=== PATIENT | female | born 1980 | race Caucasian/White ===

== ENCOUNTER 2020-01-15 21:44 | Emergency (ER) | payer OTHER ==
[~2020-01-15] VITALS: Ht 172.7 cm; Wt 90.3 kg
[~2020-01-15 21:44] MED LIST: IRON325 M1 PO; KEFLEX500 MG PO
[2020-01-15] MEDS ORDERED: KOSHER PRENATA1 EACH PO (22:02)
--- OUTSIDE RECORDS SUMMARY | 2020-01-15 23:12 | XMS ---
PreManage Notification: ONIEL SPANN Security Health Concierge Events No recent Security Events currently on file CRITERIA MET - [facility] - 2 Visits in 30 Days CARE PROVIDERS Raad Ware Community Health Worker 11/22/2018-Marisol Reynoso - PHONE: [phone] ROBB MORENO Physician Operating Systems Programmer Current PHONE: [phone] Terry has no Care Guidelines for this patient. Care History Medical/Surgical 01/13/2020 [facility] - PATIENT HAS AN APT WITH ALTHEA FRANK 01/22/2020. E.D. VISIT COUNT (12 MO.) [facility] [address] TOTAL 10 NOTE: Visits indicate total known visits. ED/UCC VISIT TRACKING (12 MO.) 01/15/2020 21:44 [facility] [place] TYPE: Emergency COMPLAINT: - CRAMPING,BACK PAIN 8 WEEKS PREG 01/04/2020 17:51 [facility] [place] TYPE: Emergency COMPLAINT: - CRAMPING DIAGNOSES: - Unspecified infection of urinary tract in , first trimester - Unspecified infection of urinary tract in , first trimester - Less than 8 weeks gestation of 10/24/2019 13:48 [employer] [facility] [place] TYPE: Emergency DIAGNOSES: - CHEST PAIN/HEART PALPITATIONS 09/01/2019 11:45 [facility] [place] TYPE: Emergency DIAGNOSES: - Unspecified atrial fibrillation - follow up 08/31/2019 15:18 [employer] [place] TYPE: Emergency DIAGNOSES: - Unspecified atrial fibrillation - +SCREENING; HEART PALPITATIONS, HYPERTENSION, SOB 07/10/2019 20:45 [facility] DIAGNOSES: - Complete or unspecified spontaneous without complication - POSS MISCARRIAGE 07/10/2019 16:00 [facility] [place] TYPE: Emergency DIAGNOSES: - Maternal care for abnormalities of the heart rate or rhythm, unspecified trimester, not applicable or unspecified - Hemorrhage in early , unspecified - VAGINAL BLEEDING AND LOWER BACK PAIN 06/26/2019 17:56 [employer] [place] TYPE: Emergency DIAGNOSES: - EARLY ,HEAVY ABD CRAMPING - Pelvic and perineal pain - Encounter for supervision of normal , unspecified, first trimester - Unspecified ovarian cyst, left side 06/08/2019 20:37 [employer] [place] TYPE: Emergency DIAGNOSES: - Pain in left knee - knee inj 05/27/2019 22:25 [facility] [place] TYPE: Emergency DIAGNOSES: - Episodic tension-type headache, not intractable - Anemia, unspecified - LOW HEMOGLOBIN LEVEL INPATIENT VISIT TRACKING (12 MO.) No inpatient visits to display in this time frame [id number]
[2020-01-16] MEDS ORDERED: FLAGYL500 MG PO (00:06)
== END 2020-01-16 00:33 | disposition home or self-care (01) ==
LOC: ED 21:44
DX: O23.591 Infection of other part of genital tract in pregnancy, first trimester (principal); B96.89 Other specified bacterial agents as the cause of diseases classified elsewhere; O99.891 Other specified diseases and conditions complicating pregnancy; I48.91 Unspecified atrial fibrillation; Z79.899 Other long term (current) drug therapy; Z3A.08 8 weeks gestation of pregnancy
CPT/HCPCS: 81001; 85379; 87210; 87491; 87591; 99283

== ENCOUNTER 2020-01-23 20:09 | Emergency (ER) | payer OTHER ==
[~2020-01-23] VITALS: Ht 172.7 cm; Wt 91.0 kg
[~2020-01-23 20:09] MED LIST changes: +FLAGYL500 MG PO; +KOSHER PRENATA1 EACH PO
--- OUTSIDE RECORDS SUMMARY | 2020-01-23 20:12 | XMS ---
PreManage Notification: ONIEL SPANN Security Bark Peeler Events No recent Security Events currently on file CRITERIA MET - 6 ED Visits in 6 Months - [facility] - 2 Visits in 30 Days CARE PROVIDERS Raad Ware Community Health Worker 11/22/2018-Marisol Reynoso - PHONE: [phone] ROBB MORENO Physician Long Term Care Phlebotomist Current PHONE: [phone] Terry has no Care Guidelines for this patient. Care History Medical/Surgical 01/13/2020 [facility] - PATIENT HAS AN APT WITH ALTHEA FRANK 01/22/2020. E.D. VISIT COUNT (12 MO.) [address] [place] [address] 3 [facility] TOTAL 11 NOTE: Visits indicate total known visits. ED/UCC VISIT TRACKING (12 MO.) 01/23/2020 20:10 [facility] [place] TYPE: Emergency COMPLAINT: - VAGINAL BLEEDING/ 9 WEEKS PREG 01/15/2020 21:44 [facility] [place] TYPE: Emergency COMPLAINT: - CRAMPING,BACK PAIN 8 WEEKS PREG DIAGNOSES: - Pain in thoracic spine - 8 weeks gestation of - Unspecified atrial fibrillation - Infection of other part of genital tract in , first trimester - Other specified bacterial agents as the cause of diseases classified elsewhere - Other specified diseases and conditions complicating - Other alf (current) drug therapy 01/04/2020 17:51 [facility] [place] TYPE: Emergency COMPLAINT: - CRAMPING DIAGNOSES: - Unspecified infection of urinary tract in , first trimester - Unspecified infection of urinary tract in , first trimester - Less than 8 weeks gestation of 10/24/2019 13:48 [employer] [place] TYPE: Emergency COMPLAINT: - CHEST PAIN/HEART PALPITATIONS DIAGNOSES: - CHEST PAIN/HEART PALPITATIONS 09/01/2019 11:45 [employer] [place] TYPE: Emergency DIAGNOSES: - Unspecified atrial fibrillation - follow up 08/31/2019 15:18 [facility] OR TYPE: Emergency DIAGNOSES: - Unspecified atrial fibrillation - +SCREENING; HEART PALPITATIONS, HYPERTENSION, SOB 07/10/2019 20:45 [facility] [place] TYPE: Emergency DIAGNOSES: - Complete or unspecified spontaneous without complication - POSS MISCARRIAGE 07/10/2019 16:00 [facility] [place] TYPE: Emergency DIAGNOSES: - Maternal care for abnormalities of the heart rate or rhythm, unspecified trimester, not applicable or unspecified - Hemorrhage in early , unspecified - VAGINAL BLEEDING AND LOWER BACK PAIN 06/26/2019 17:56 [facility] [place] TYPE: Emergency DIAGNOSES: - EARLY ,HEAVY ABD CRAMPING - Pelvic and perineal pain - Encounter for supervision of normal , unspecified, first trimester - Unspecified ovarian cyst, left side 06/08/2019 20:37 [facility] [place] TYPE: Emergency DIAGNOSES: - Pain in left knee - knee inj 05/27/2019 22:25 [facility] [place] TYPE: Emergency DIAGNOSES: - Episodic tension-type headache, not intractable - Anemia, unspecified - LOW HEMOGLOBIN LEVEL INPATIENT VISIT TRACKING (12 MO.) No inpatient visits to display in this time frame [id number]
== END 2020-01-23 20:44 | disposition home or self-care (01) ==
LOC: ED 20:09
DX: O20.0 Threatened abortion (principal); O99.411 Diseases of the circulatory system complicating pregnancy, first trimester; I48.91 Unspecified atrial fibrillation; Z79.899 Other long term (current) drug therapy
CPT/HCPCS: 99283

== ENCOUNTER 2020-01-24 23:33 | Emergency (ER) | payer OTHER ==
[~2020-01-24] VITALS: Ht 172.7 cm; Wt 90.7 kg
--- OUTSIDE RECORDS SUMMARY | 2020-01-24 23:36 | XMS ---
PreManage Notification: ONIEL SPANN Security Package Line Relief Operator Events No recent Security Events currently on file CRITERIA MET - 6 ED Visits in 6 Months - [facility] - 2 Visits in 30 Days CARE PROVIDERS Raad Ware Community Health Worker 11/22/2018-Marisol Reynoso - PHONE: [phone] ROBB MORENO Physician Fitting Room Associate Current PHONE: [phone] Terry has no Care Guidelines for this patient. Care History Medical/Surgical 01/13/2020 [facility] - PATIENT HAS AN APT WITH ALTHEA FRANK 01/22/2020. E.D. VISIT COUNT (12 MO.) [address] [place] [address] 4 [facility] Miguel Barrera Gerber TOTAL 12 NOTE: Visits indicate total known visits. ED/UCC VISIT TRACKING (12 MO.) 01/24/2020 23:33 [facility] [place] TYPE: Emergency COMPLAINT: - 9WKS OB, VAGINAL BLEEDING 01/23/2020 20:10 [facility] [place] TYPE: Emergency COMPLAINT: - VAGINAL BLEEDING/ 9 WEEKS PREG 01/15/2020 21:44 [facility] [place] TYPE: Emergency COMPLAINT: - CRAMPING,BACK PAIN 8 WEEKS PREG DIAGNOSES: - Pain in thoracic spine - 8 weeks gestation of - Unspecified atrial fibrillation - Infection of other part of genital tract in , first trimester - Other specified bacterial agents as the cause of diseases classified elsewhere - Other specified diseases and conditions complicating - Other manager terminal (current) drug therapy 01/04/2020 17:51 [facility] [place] TYPE: Emergency COMPLAINT: - CRAMPING DIAGNOSES: - Unspecified infection of urinary tract in , first trimester - Unspecified infection of urinary tract in , first trimester - Less than 8 weeks gestation of 10/24/2019 13:48 [facility] [place] TYPE: Emergency COMPLAINT: - CHEST PAIN/HEART PALPITATIONS DIAGNOSES: - CHEST PAIN/HEART PALPITATIONS 09/01/2019 11:45 [facility] [place] TYPE: Emergency DIAGNOSES: - Unspecified atrial fibrillation - follow up 08/31/2019 15:18 [facility] [place] TYPE: Emergency DIAGNOSES: - Unspecified atrial fibrillation - +SCREENING; HEART PALPITATIONS, HYPERTENSION, SOB 07/10/2019 20:45 [facility] [place] TYPE: Emergency DIAGNOSES: - Complete or unspecified spontaneous without complication - POSS MISCARRIAGE 07/10/2019 16:00 [facility] [place] TYPE: Emergency DIAGNOSES: - Maternal care for abnormalities of the heart rate or rhythm, unspecified trimester, not applicable or unspecified - Hemorrhage in early , unspecified - VAGINAL BLEEDING AND LOWER BACK PAIN 06/26/2019 17:56 [facility] [place] TYPE: Emergency DIAGNOSES: - EARLY ,HEAVY ABD CRAMPING - Pelvic and perineal pain - Encounter for supervision of normal , unspecified, first trimester - Unspecified ovarian cyst, left side 06/08/2019 20:37 [facility] [employer] [place] TYPE: Emergency DIAGNOSES: - Pain in left knee - knee inj 05/27/2019 22:25 [facility]: Emergency DIAGNOSES: - Episodic tension-type headache, not intractable - Anemia, unspecified - LOW HEMOGLOBIN LEVEL INPATIENT VISIT TRACKING (12 MO.) No inpatient visits to display in this time frame [id number]
--- NOTE | 2020-01-25 02:45 | NUR ---
ED Doctor asked me to visit with PT because she was emotional after learning that she had a demise. I visit with PT and listened to her and offered her support. She is concerned how her children will respond to the news. She welcomed me praying with her. I gave her a resourse to help process her emotions and loss and encouraged her to find support in her community. This was at approx. 0200.
[2020-01-26] MEDS ORDERED: NORCO 5-325 TA1 EACH PO (13:06)
== END 2020-01-25 02:30 | disposition home or self-care (01) ==
LOC: ED 23:33
DX: O03.9 Complete or unspecified spontaneous abortion without complication (principal); I48.91 Unspecified atrial fibrillation; Z79.899 Other long term (current) drug therapy
CPT/HCPCS: 76801; 84702; 85025; 99284-25

== ENCOUNTER 2020-01-26 09:54 | Emergency (ER) | payer OTHER ==
[~2020-01-26] VITALS: Ht 172.7 cm; Wt 90.7 kg
--- OUTSIDE RECORDS SUMMARY | 2020-01-26 09:58 | XMS ---
PreManage Notification: ONIEL SPANN Security Hospitality Manager Events No recent Security Events currently on file CRITERIA MET - 6 ED Visits in 6 Months - [facility] - 2 Visits in 30 Days CARE PROVIDERS Raad Ware Community Health Worker 11/22/2018-Marisol Reynoso - PHONE: [phone] ROBB MORENO Physician Job Coach Current PHONE: [phone] Terry has no Care Guidelines for this patient. Care History Medical/Surgical 01/13/2020 [facility] - PATIENT HAS AN APT WITH ALTHEA FRANK 01/22/2020. E.D. VISIT COUNT (12 MO.) [address] [place] [address] [facility] TOTAL 13 NOTE: Visits indicate total known visits. ED/UCC VISIT TRACKING (12 MO.) 01/26/2020 09:55 [facility] [place] TYPE: Emergency COMPLAINT: - LABOR TYPE PAIN 01/24/2020 23:33 [facility] [place] TYPE: Emergency [...] specified diseases and conditions complicating - Other exterminator helper termite (current) drug therapy 01/04/2020 17:51 [facility] [place] TYPE: Emergency COMPLAINT: - CRAMPING DIAGNOSES: - Unspecified infection of urinary tract in , first trimester - Unspecified infection of urinary tract in , first trimester - Less than 8 weeks gestation of 10/24/2019 13:48 [facility] [place] TYPE: Emergency COMPLAINT: - CHEST PAIN/HEART PALPITATIONS DIAGNOSES: - CHEST PAIN/HEART PALPITATIONS 09/01/2019 11:45 [facility]: Emergency DIAGNOSES: - Unspecified atrial fibrillation - follow up 08/31/2019 15:18 [facility] [place] TYPE: Emergency DIAGNOSES: - Unspecified atrial fibrillation - +SCREENING; HEART PALPITATIONS, HYPERTENSION, SOB 07/10/2019 20:45 [facility] [place] TYPE: Emergency DIAGNOSES: - Complete or unspecified spontaneous without complication - POSS MISCARRIAGE 07/10/2019 16:00 [facility] [place] TYPE: Emergency DIAGNOSES: - Maternal care for abnormalities of the heart rate or rhythm, unspecified trimester, not applicable or unspecified - Hemorrhage in early , unspecified - VAGINAL BLEEDING AND LOWER BACK PAIN 06/26/2019 17:56 [facility] [place] TYPE: Emergency DIAGNOSES: - EARLY ,HEAVY ABD CRAMPING - Pelvic and perineal pain - Encounter for supervision of normal , unspecified, first trimester - Unspecified ovarian cyst, left side 06/08/2019 20:37 [facility] [place] TYPE: Emergency DIAGNOSES: - Pain in left knee - knee inj 05/27/2019 22:25 [place] TYPE: Emergency DIAGNOSES: - Episodic tension-type headache, not intractable - Anemia, unspecified - LOW HEMOGLOBIN LEVEL INPATIENT VISIT TRACKING (12 MO.) No inpatient visits to display in this time frame [email or web address]
[2020-01-26] MEDS ORDERED: NORCO 5-325 TA1 EACH PO (13:06)
== END 2020-01-26 13:45 | disposition home or self-care (01) ==
LOC: ED 09:54
DX: O03.9 Complete or unspecified spontaneous abortion without complication (principal); I48.91 Unspecified atrial fibrillation; Z79.899 Other long term (current) drug therapy
CPT/HCPCS: 76801; 76817; 80048; 81001; 84702; 85025; 86900; 86901; 99284-25; J2270; J7030

== ENCOUNTER 2020-03-16 10:31 | Emergency (ER) | payer OTHER ==
[~2020-03-16] VITALS: Ht 172.7 cm; Wt 90.7 kg
[~2020-03-16 10:31] MED LIST changes: +NORCO 5-325 TA1 EACH PO
--- OUTSIDE RECORDS SUMMARY | 2020-03-16 10:34 | XMS ---
PreManage Notification: ONIEL SPANN Security Passenger Service Agent Events No recent Security Events currently on file CRITERIA MET - 6 ED Visits in 6 Months CARE PROVIDERS Raad Ware Community Health Worker 11/22/2018-Marisol Reynoso - PHONE: [phone] ROBB MORENO Physician Paper Latcher Current PHONE: [phone] Terry has no Care Guidelines for this patient. Care History Medical/Surgical 01/13/2020 [facility] - PATIENT HAS AN APT WITH ALTHEA FRANK 01/22/2020. E.D. VISIT COUNT (12 MO.) [address] [place] [address] TOTAL 14 NOTE: Visits indicate total known visits. ED/UCC VISIT TRACKING (12 MO.) 03/16/2020 10:31 [facility] [place] TYPE: Emergency COMPLAINT: - WEAKNESS, HEADACHE 01/26/2020 09:55 [facility] [place] TYPE: Emergency COMPLAINT: - LABOR TYPE PAIN DIAGNOSES: - Complete or unspecified spontaneous without complication - Unspecified atrial fibrillation - Other halfway (current) drug therapy 01/24/2020 23:33 [facility] [place] TYPE: Emergency COMPLAINT: - 9WKS OB, VAGINAL BLEEDING DIAGNOSES: - Unspecified atrial fibrillation - Other rn long term care (current) drug therapy - Complete or unspecified spontaneous without complication - Hemorrhage in early , unspecified 01/23/2020 20:10 [facility] [place] TYPE: Emergency COMPLAINT: - VAGINAL BLEEDING/ 9 WEEKS PREG DIAGNOSES: - Unspecified atrial fibrillation - Other rn long term care (current) drug therapy - Diseases of the circulatory system complicating , first trimester - Threatened 01/15/2020 21:44 [facility] [place] TYPE: Emergency COMPLAINT: - CRAMPING,BACK PAIN 8 WEEKS PREG DIAGNOSES: - Pain in thoracic spine - 8 weeks gestation of - Unspecified atrial fibrillation - Infection of other part of genital tract in , first trimester - Other specified bacterial agents as the cause of diseases classified elsewhere - Other specified diseases and conditions complicating - Other specified diseases and conditions complicating - Other halfway (current) drug therapy 01/04/2020 17:51 [facility] [place] TYPE: Emergency COMPLAINT: - CRAMPING DIAGNOSES: - Unspecified infection of urinary tract in , first trimester - Unspecified infection of urinary tract in , first trimester - Less than 8 weeks gestation of 10/24/2019 13:48 [facility] [place] [facility]: [facility] COMPLAINT: - CHEST PAIN/HEART PALPITATIONS DIAGNOSES: - CHEST PAIN/HEART PALPITATIONS 09/01/2019 11:45 [facility] [place] TYPE: Emergency DIAGNOSES: - Unspecified atrial fibrillation - follow up 08/31/2019 15:18 [facility] [place] TYPE: Emergency DIAGNOSES: - Unspecified atrial fibrillation - +SCREENING; HEART PALPITATIONS, HYPERTENSION, SOB 07/10/2019 20:45 [employer] [facility] [employer] [place] TYPE: Emergency DIAGNOSES: - Complete or unspecified spontaneous without complication - POSS MISCARRIAGE 07/10/2019 16:00 [facility] [place] TYPE: Emergency DIAGNOSES: - Maternal care for abnormalities of the heart rate or rhythm, unspecified trimester, not applicable or unspecified - Hemorrhage in early , unspecified - VAGINAL BLEEDING AND LOWER BACK PAIN 06/26/2019 17:56 [facility] [place] TYPE: Emergency DIAGNOSES: - EARLY ,HEAVY ABD CRAMPING - Pelvic and perineal pain - Encounter for supervision of normal , unspecified, first trimester - Unspecified ovarian cyst, left side 06/08/2019 20:37 [employer] [facility] [place] TYPE: Emergency DIAGNOSES: - Pain in left knee - knee inj 05/27/2019 22:25 [facility] [place] TYPE: Emergency DIAGNOSES: - Episodic tension-type headache, not intractable - Anemia, unspecified - LOW HEMOGLOBIN LEVEL INPATIENT VISIT TRACKING (12 MO.) No inpatient visits to display in this time frame [email or web address]
== END 2020-03-16 11:46 | disposition home or self-care (01) ==
LOC: ED 10:31
DX: R53.83 Other fatigue (principal); N93.9 Abnormal uterine and vaginal bleeding, unspecified; I48.91 Unspecified atrial fibrillation; Z79.899 Other long term (current) drug therapy
CPT/HCPCS: 85014; 85018; 99283

== ENCOUNTER 2022-06-05 21:07 | Emergency (ER) | payer OTHER ==
[~2022-06-05] VITALS: Ht 172.7 cm; Wt 103.5 kg
--- OUTSIDE RECORDS SUMMARY | 2022-06-05 21:12 | XMS ---
PreManage Notification: ONIEL SPANN Security Residential Property Consultant Events No recent Security Events currently on file CRITERIA MET - [facility] - 6 ED Visits in 6 Months CARE PROVIDERS -Larry- Dentist: Corporate Development Officer [facility] PHONE: [phone] Thais Restoration Ecologist 09/28/2020-Current PHONE: [phone] ROBB MORENO Physician Drinking Water Technician Current PHONE: Unknown Terry has no Care Guidelines for this patient. Care History Medical/Surgical 03/23/2020 [facility] - W CONTACTED PATIENT-DISCUSSED PROVIDERS IN [place] AND THE CLINICS AVAILABLE TO ESTABLISH CARE WITH. - PATIENT STATED SHE WOULD CONTACT ONE OF THE CLINICS PROVIDED OVER THE PHONE AND MAKE AN APT BASED ON HER SCHEDULE. - NO FURTHER CONCERNS PER PATIENT AT THIS TIME. 01/13/2020 [facility] - PATIENT HAS AN APT WITH ALTHEA FRANK 01/22/2020. Jong VISIT COUNT (12 MO.) [address] [place] [address] TOTAL 9 NOTE: Visits indicate total known visits. ED/UCC VISIT TRACKING (12 MO.) 06/05/2022 21:10 [facility] COMPLAINT: - R LOWER BACK 04/13/2022 16:14 [facility] [place] TYPE: Emergency DIAGNOSES: - COVID-19 - FEVER, PALPITATIONS - Anemia, unspecified 03/08/2022 00:09 [employer] [place] [employer] [place] TYPE: Emergency DIAGNOSES: - CHILLS COUGH HEADACHE - Viral infection, unspecified - Palpitations 02/09/2022 15:43 [facility] [employer] [place] TYPE: Emergency DIAGNOSES: - Anxiety disorder, unspecified - FOOT INJ - Contusion of right foot, initial encounter 01/10/2022 19:43 [facility] [employer] [place] TYPE: Emergency DIAGNOSES: - CHEST PAIN SOB - Palpitations 12/10/2021 20:11 [facility] [employer] [place] TYPE: Emergency DIAGNOSES: - Palpitations - Iron deficiency anemia, unspecified - PALPITATION - Other fatigue 10/17/2021 08:15 [employer] [place] [employer] [place] TYPE: Emergency DIAGNOSES: - HEADACHE - Other fatigue 09/26/2021 15:31 [facility] [employer] [place] TYPE: Emergency DIAGNOSES: - BLOOD TRANSFUSION - Anemia, unspecified 09/26/2021 04:26 [employer] [place] TYPE: Emergency DIAGNOSES: - HEART PALPITATIONS SOB - Anemia, unspecified - Iron deficiency INPATIENT VISIT TRACKING (12 MO.) No inpatient visits to display in this time frame [email or web address]
[2022-06-05] MEDS ORDERED: PREDNISONE20 MG PO (23:37)
[2022-06-05] MEDS ORDERED: LIDODERM1 EACH TOP (23:38)
[2022-06-05 23:54] VITALS: BP 128/77
== END 2022-06-05 23:55 | disposition home or self-care (01) ==
LOC: ED 21:07
DX: S33.6XXA Sprain of sacroiliac joint, initial encounter (principal); X58.XXXA Exposure to other specified factors, initial encounter; I48.91 Unspecified atrial fibrillation; Z79.899 Other long term (current) drug therapy
CPT/HCPCS: 81001; 84703; 96372; 99283; J1100; J1885

== ENCOUNTER 2023-03-10 16:07 | Emergency (ER) | payer OTHER ==
[~2023-03-10] VITALS: Ht 172.7 cm; Wt 111.6 kg
[~2023-03-10 16:07] MED LIST changes: +LIDODERM1 EACH TOP; +PREDNISONE20 MG PO
[2023-03-10] MEDS ORDERED: HYDROCODON-ACE1 EA11 PO (16:47)
[2023-03-10] MEDS ORDERED: PENICILLIN V P500 MG PO (16:47)
[2023-03-10] MEDS ORDERED: PERCOCET 7.5-31 EACH PO (16:53)
[2023-03-10 16:59] VITALS: BP 170/89
== END 2023-03-10 17:00 | disposition home or self-care (01) ==
LOC: ED 16:07
DX: K08.89 Other specified disorders of teeth and supporting structures (principal); J34.89 Other specified disorders of nose and nasal sinuses; Z79.52 Long term (current) use of systemic steroids; Z79.899 Other long term (current) drug therapy
CPT/HCPCS: 99282

== ENCOUNTER 2023-08-14 18:32 | Emergency (ER) | payer OTHER ==
[~2023-08-14] VITALS: Ht 172.7 cm; Wt 119.0 kg
[~2023-08-14 18:32] MED LIST changes: +HYDROCODON-ACE1 EA11 PO; +PENICILLIN V P500 MG PO; +PERCOCET 7.5-31 EACH PO
[2023-08-14 19:41] LABS: BILIRUBIN, URINE NEGATIVE (negative); BLOOD/HGB, URINE NEGATIVE (Negative); KETONE, URINE NEGATIVE (Negative); LEUK ESTERASE, URINE NEGATIVE (negative); NITRITE, URINE NEGATIVE (negative); PH, URINE 5.5 (5-7)
[2023-08-14] MEDS ORDERED: LACTATED RINGER'S 1,000 ML IV ONE (20:15)
[2023-08-14 20:28] LABS: BASOPHILS 0.9 % (0-2); EOSINOPHILS 0.6 % (0-6); HEMATOCRIT 30.4 % (35.0-50.0); HEMOGLOBIN 9.4 g/dL (12.0-18.0); MCH 19.6 (27-36); MCV 63.4 fl (81-99); MONOCYTES 9.8 % (0-12); NEUTROPHILS 63.7 % (39-80); PLATELET COUNT 284 K/uL (140-440); RDW 17.7 (10.5-15.0)
[2023-08-14 20:52] LABS: ABO A; RH POSITIVE
[2023-08-14 21:02] LABS: ALBUMIN 3.3 g/dL (3.4-5.0); ALBUMIN/GLOBULIN RATIO 0.97 (1.1-2.4); ANION GAP 14.8 (7-21); BILIRUBIN, TOTAL 0.2 ng/dL (0.2-1.0); BUN/CREATININE RATIO 11.66 (6.0-28.6); CALCIUM 8.3 mg/dL (8.5-10.1); CREATININE, SERUM 0.6 mg/dL (0.55-1.02); POTASSIUM 3.8 mmol/L (3.5-5.1); PROTEIN, TOTAL 6.7 g/dL (6.4-8.2)
[2023-08-14 21:27] VITALS: BP 109/60
== END 2023-08-14 21:36 | disposition home or self-care (01) ==
LOC: ED 18:32
PROVIDERS: Family Medicine
DX: O20.8 Other hemorrhage in early pregnancy (principal); Z3A.09 9 weeks gestation of pregnancy; Z91.09 Other allergy status, other than to drugs and biological substances
CPT/HCPCS: 36415; 76801; 80053; 81003; 84702; 85025; 85060; 86900; 86901; J7121